=== PATIENT | male | born 1960 | race Caucasian/White ===

== ENCOUNTER → 2018-01-26 15:55 | Outpatient (CLI) | payer OTHER, SELFPAY ==
--- NOTE | 2018-01-26 15:58 | DI.RAD.S_ITS ---
PROCEDURE: XR ANKLE LT MIN 3V INDICATIONS: ankle pain lateral TECHNIQUE: 3 views of the ankle were acquired. COMPARISON: [facility], ANKLE 3 VIEWS LEFT, 02/13/2008, 14:16. [facility], ANKLE 3 VIEWS LEFT, 12/25/2007, 11:55. FINDINGS: Bones: No fractures or dislocations. Ankle mortise is normally aligned. No suspicious bony lesions. Soft tissues: No tibiotalar joint effusion. Achilles tendon appears normal. IMPRESSION: No trauma found, source of lateral ankle pain is not seen. Small plantar fascia and Achilles tendon insertion spurs are seen at the posterior calcaneus. Dictated by: Pedro Hernandez M.D. on 01/26/2018 at 16:36 Approved by: Pedro Hernandez M.D. on 01/26/2018 at 16:37
== END ==
PROVIDERS: Family Provider Family Medicine; PCP Family Medicine; Visit Provider Family Medicine
DX: M25.572 Pain in left ankle and joints of left foot (principal); M77.32 Calcaneal spur, left foot
CPT/HCPCS: 73610

== ENCOUNTER 2018-09-29 11:19 | Day surgery (SDC) | payer OTHER, SELFPAY ==
[2018-09-12 07:21] VITALS: BMI 35.4
[2018-09-29] VITALS (9 sets, daily range): BP systolic 103–116; BP diastolic 66–82; PULSE 63–72; RESP 10–16; TEMP 36.7–37.3; O2SAT 96–98; BMI 35.4
[2018-09-29] MEDS: LACTATED RINGERS 1,000 ML 42 ML IV ×2 (12:05→14:47)
--- NOTE | 2018-09-29 13:15 | PM.PREOP ---
Pre-operative Note Interval Note History & Physical reviewed/Exam performed by Physician: Yes Changes to H&P: No
--- NOTE | 2018-09-29 13:16 | PM.OP.1 ---
Operative Date/Time/Diagnoses Date of procedure: 09/29/18 Time of procedure: 13:16 Pre-op diagnosis: Right great toe arthritis, retained orthopedic hardware Post-op diagnosis: same Procedure & Clinicians Procedure: Right first metatarsophalangeal joint my-cap implant removal and conversion to arthrodesis Same procedure as scheduled: Yes Indications: Painful great toe joint with worsening arthritis Surgeon: Mis Birmingham Yes if Unassisted: Yes Anesthesia Type: General Operative Notes Closure Type: primary Specimen(s): none sent Prosthetic devices, grafts, tissues, transplants, or devices: [place] MTP plate 5 degrees, long Mini-Monster cannulated [place] screw 4.0 x1 Gorilla 3.5 locking x4 and non-locking x3 screws MTP bone disc 8x21mm Cancellous bone chips by [employer] 3-0, 4-0 Vicryl, 3-0 nylon Applied: graft(s) and implant(s) Estimated Blood Loss (mL): 40 Blood products transfused: none Tourniquet time (min): 119 Procedure in detail: The patient was brought to the operating room and placed on the operating table in the supine position. A tourniquet was placed about the patient's right thigh. After induction of general anesthesia the foot and ankle were prepped and draped in the usual aseptic manner. The tourniquet was inflated. Incision was made over the dorsal aspect of the right 1st metatarsophalangeal joint. The incision was deepened through subcutaneous tissues being careful to identify and retract all vital neurovascular structures. All bleeders were cauterized and ligated necessary. A significant amount of scar tissue was noted to the dorsal 1st metatarsophalangeal joint. The capsule was opened and I observed to the my cap in place on the 1st metatarsal head. It was clean and in place, there was a large amount of bone on the lateral plantar and little less on the dorsal and medial aspects. An osteotome and hammer were used to cleanly champfer off the distal cap. However this process took approximately 45 minutes as it was great difficulty in getting this off. We did find that taking down some of the bone was of help but regardless it just took time. However, it was removed cleanly and the stem was easily removed with the corresponding horse and wagon driver. A rongeur was used to reduce some of the leading edge of the bone of the 1st metatarsal as well as some of the exostoses and spurring of the proximal phalanx. A guidewire was placed in the 1st metatarsal shaft and a Reamer was used to prepare this segment. The guidewire was then removed. Next, the same was performed to the proximal phalanx base where a reamer was used to resect the cartilage from it to prepare the joint. The guidewire was then removed. The area was irrigated with copious amount of normal sterile saline. Sizer was tested and 1 was selected. Once the appropriate sizer was found, the cancellous bone chips were packed into the area of the first metatarsal where the stem had been removed. The graft was placed and seated well, reestablishing alignment. Temporary fixation across the joint was placed with a guidewire and this was checked under C-arm to be in appropriate alignment. Using the aid of fluoroscopy, the guide wire was used as cannulation for the drill for a lag screw from the distal medial to proximal lateral 1st metatarsal phalangeal joint through the graft. Confirmed appropriate in all 3 planes, a fully-threaded screw was placed and the guidewire removed. Good strength and reduction of the former joint as noted when loaded. Plate was placed and with the aid of fluoroscopy a series of locking screws and nonlocking screws were placed across the plate and steadied the joint well. This was checked on C-arm. The area is irrigated with copious amounts normal sterile saline. Some remaining bone chips were placed in small gap dorsally at prox phalanx, but pretty tight touch between graft and phalanx. The tourniquet was deflated and prompt hyperemic response was seen to the foot. And no motion was noted at the 1st MTPJ. Subcutaneous closure was performed using Vicryl and nylon was used to close the skin. A sterile lightly compressive dressing was placed on the foot and patient was placed in postoperative shoe. Patient was transferred to the PACU with vital signs stable and vascular status intact. Complications: none Condition: stable Disposition: PACU Plan for aftercare: Following a period of postoperative monitoring, the patient be discharged home on written and oral postoperative instructions including keeping the dressing dry and intact, avoiding ambulation on the foot, icing and elevating the foot when seated home. DVT prevention techniques have been reviewed. Nonweightbearing for 4-6 weeks, or until we feel comfortable from a standpoint after radiographs are reviewed at the 4th week.
[2018-09-29] MEDS: CEFAZOLIN 2 GM/100 ML FROZ.PIGGY IV (13:47)
--- NOTE | 2018-09-29 14:14 | SUR.OPER ---
Supine on padded OR bed, head on pillow, arms secured on padded arm boards at <90 degrees abduction, legs uncrossed, safety belt at waist, tape over blanket over left lower leg. Right leg under control of surgeon. Gel bump under right hip.
[2018-09-29] MEDS: BUPIVACAINE 0.5% (PF) VIAL 30 ML INJ (14:29)
[2018-09-29] MEDS: ACETAMINOPHEN 325 MG TABLET PO (17:18)
== END 2018-09-29 18:04 | disposition home or self-care (01) ==
PROVIDERS: Family Provider Family Medicine; PCP Family Medicine; Visit Provider Podiatrist
PROC: (CPT 26535; principal; 2018-09-29 12:30)
DX: M25.571 Pain in right ankle and joints of right foot (principal); M19.071 Primary osteoarthritis, right ankle and foot
CPT/HCPCS: 28750; 20680; J0360; J0690; J1100; J2405; J2704; J3010

== ENCOUNTER → 2019-03-30 15:13 | Outpatient (CLI) | payer OTHER, SELFPAY ==
--- NOTE | 2019-03-30 15:15 | DI.RAD.S_ITS ---
PROCEDURE: XR SHOULDER RT MIN 2V INDICATIONS: pain, dec rom, r/o AC sep/dislocation TECHNIQUE: 3 views of the shoulder were acquired. COMPARISON: None. FINDINGS: Bones: No fractures or dislocations. No suspicious bony lesions. Visualized ribs appear intact. Soft tissues: No suspicious soft tissue calcifications. IMPRESSION: No acute osseous abnormality. No AC joint separation demonstrated. Dictated by: Casper Hi M.D. on 03/30/2019 at 15:50 Approved by: Casper Hi M.D. on 03/30/2019 at 15:57
== END ==
PROVIDERS: Family Provider Family Medicine; PCP Family Medicine; Visit Provider Physician Assistant
DX: M25.511 Pain in right shoulder (principal)
CPT/HCPCS: 73030

== ENCOUNTER → 2019-04-05 07:14 | Outpatient (CLI) | payer OTHER, SELFPAY ==
--- NOTE | 2019-04-05 07:18 | DI.US.S_ITS ---
PROCEDURE: US ABDOMEN COMPLETE INDICATIONS: RIGHT UPPER QUADRANT PAIN TECHNIQUE: Real-time scanning was performed of the abdominal and retroperitoneal organs, with image documentation. COMPARISON: None. FINDINGS: Liver: Liver is normal in size and homogeneous in echotexture. Gallbladder: Removed. Biliary ducts: Portions of the biliary ducts are not seen, yet the common hepatic duct measures 5 mm. Pancreas: Not seen, obscured by overlying bowel gas. Spleen: Spleen measures 14 cm, which is considered to be mildly enlarged. Kidneys: Kidneys are normal in size and echotexture. Right kidney measures 10.9 cm long; left kidney measures 11.2 cm long. No hydronephrosis or nephrolithiasis. No solid masses. The renal cortex measures within normal limits for thickness. Aorta: Visualized aorta is normal in caliber at less than 3 cm. Iliacs: Proximal common iliac arteries are normal in caliber at less than 2.5 cm. IVC: Intrahepatic inferior vena cava is patent. Miscellaneous: No free abdominal fluid. IMPRESSION: No imaging explanation is found for this patient's presenting history of right upper quadrant pain. Cholecystectomy, without biliary dilatation. Mild splenomegaly. Dictated by: Arthur Solis M.D. on 04/05/2019 at 9:56 Approved by: Arthur Solis M.D. on 04/05/2019 at 9:58
[2019-04-05 08:12] LABS: Add Manual Diff / Slide Review NO; Basophils Absolute Auto 0 /uL (0-100); Basophils Percent Auto 0.6 % (0-2); Eosinophils Absolute Auto 100 /uL (0-450); Eosinophils Percent Auto 2.2 % (2-4); Hematocrit 42.1 % (41-53); Hemoglobin 14.6 g/dL (13.5-17.5); Lymphocytes Absolute Auto 1400 /uL (1100-4500); Mean Corpuscular HGB Conc 34.8 % (30-36); Mean Corpuscular Hemoglobin 29.4 PG (26-34); Mean Corpuscular Volume 84.6 fL (80-100); Monocytes Absolute Auto 400 /uL (0-900); Monocytes Percent Auto 9.2 % (3-14); Neutrophils Absolute Auto 2100 /uL (1500-7000); Platelet Count 144 X10^3/uL (150-400); Red Blood Cell Count 4.98 X10^6/uL (4.5-5.9); Red Cell Distribution Width 13.5 % (11.6-14.8); White Blood Cell Count 3.9 X10^3/uL (4.5-11.0)
[2019-04-05 08:49] LABS: Alanine Aminotransferase 24 IU/L (<50); Albumin 4.1 g/dL (3.5-5.0); Albumin Globulin Ratio 1.5 (1.0-2.8); Alkaline Phosphatase 70 U/L (38-126); Aspartate Aminotransferase 26 IU/L (17-59); BUN Creatinine Ratio 14.4 (6-22); Bilirubin Total 0.5 mg/dL (0.2-1.3); Blood Urea Nitrogen 13 mg/dL (9-20); Calcium 9.3 mg/dL (8.4-10.2); Carbon Dioxide 30 mmol/L (22-32); Chloride 104 mmol/L (98-107); Cholesterol 167 mg/dL (140-199); Estimated Glomerular Filt Rate > 60.0 mL/min (>60); Globulin 2.7 g/dL (1.7-4.1); Glucose 103 mg/dL (70-100); HDL Cholesterol 32 mg/dL (40-60); HEMOLYSIS < 15 (0-50); LDL Cholesterol Calculated 103 mg/dL (<100); Potassium 4.1 mmol/L (3.4-5.1); Sodium 141 mmol/L (137-145); Total Protein 6.8 g/dL (6.3-8.2); Triglycerides 162 mg/dL (35-150)
[2019-04-05 09:14] LABS: TSH w/ Reflex to FT4 1.82 uIU/mL (0.47-4.68)
== END ==
PROVIDERS: PCP Family Medicine; Visit Provider Family Medicine
DX: R10.11 Right upper quadrant pain (principal); R16.1 Splenomegaly, not elsewhere classified; Z90.49 Acquired absence of other specified parts of digestive tract
CPT/HCPCS: 36415; 76700; 80053; 80061; 84443; 85025

== ENCOUNTER 2020-01-16 13:54 | Emergency (ER) | payer OTHER, SELFPAY ==
[2020-01-16 14:00] VITALS: BP 153/73; PULSE 73; RESP 17; TEMP 36.8; O2SAT 98; BMI 33.6
--- NOTE | 2020-01-16 14:21 | DI.RAD.S_ITS ---
PROCEDURE: XR CHEST 1V INDICATIONS: chest pain TECHNIQUE: One view of the chest was acquired. COMPARISON: None. FINDINGS: Surgical changes and devices: None. Lungs and pleura: Lungs are clear. No pleural effusions or pneumothorax. Mediastinum: Mediastinal contours appear normal. Heart size is normal. Bones and chest wall: No suspicious bony lesions. Overlying soft tissues appear unremarkable. IMPRESSION: No acute cardiopulmonary abnormalities or focal airspace disease. Dictated by: Cheko Lee M.D. on 01/16/2020 at 13:49 Approved by: Cheko Lee M.D. on 01/16/2020 at 13:50
[2020-01-16 14:37] LABS: Add Manual Diff / Slide Review NO; Basophils Absolute Auto 0 /uL (0-100); Basophils Percent Auto 0.7 % (0-2); Eosinophils Absolute Auto 100 /uL (0-450); Hematocrit 41.8 % (41-53); Lymphocytes Absolute Auto 1400 /uL (1100-4500); Lymphocytes Percent Auto 28.8 % (25-40); Mean Corpuscular HGB Conc 33.5 % (30-36); Mean Corpuscular Volume 86.6 fL (80-100); Monocytes Absolute Auto 300 /uL (0-900); Monocytes Percent Auto 6.9 % (3-14); Neutrophils Absolute Auto 3100 /uL (1500-7000); Neutrophils Percent Auto 61.6 % (50-75); Platelet Count 150 X10^3/uL (150-400); Red Blood Cell Count 4.82 X10^6/uL (4.5-5.9); Red Cell Distribution Width 13.7 % (11.6-14.8)
[2020-01-16 14:47] LABS: INR 1.1 (0.9-1.3); Prothrombin Time 12.3 SECONDS (10.1-12.7)
[2020-01-16 14:49] LABS: PTT Partial Thromboplastin Tim 34 SECONDS (26.4-36.2)
[2020-01-16 14:52] LABS: Alanine Aminotransferase 24 IU/L (<50); Albumin 4.2 g/dL (3.5-5.0); Albumin Globulin Ratio 1.4 (1.0-2.8); Alkaline Phosphatase 68 U/L (38-126); Aspartate Aminotransferase 28 IU/L (17-59); BUN Creatinine Ratio 13.1 (6-22); Bilirubin Total 0.5 mg/dL (0.2-1.3); Blood Urea Nitrogen 11 mg/dL (9-20); Calcium 8.9 mg/dL (8.4-10.2); Carbon Dioxide 29 mmol/L (22-32); Chloride 103 mmol/L (98-107); Creatine Kinase 170 U/L (55-170); Estimated Glomerular Filt Rate > 60.0 mL/min (>60); Globulin 2.9 g/dL (1.7-4.1); Glucose 138 mg/dL (80-110); HEMOLYSIS < 15 (0-50); Lipase 58 U/L (23-300); Potassium 3.9 mmol/L (3.4-5.1); Sodium 138 mmol/L (137-145); Total Protein 7.1 g/dL (6.3-8.2)
[2020-01-16 15:07] LABS: CKMB % Relative Index 2.3 % (1.5-5.0); Creatine Kinase MB 3.88 ng/mL (<2.37); Troponin I < 0.012 ng/mL (0.01-0.034)
[2020-01-16 15:45] LABS: D Dimer < 200 ng/mL (<230)
[2020-01-16 15:55] LABS: NT-proBNP (BNP-Adult 18+) 26 pg/mL (<125)
--- NOTE | 2020-01-16 16:31 | PC.NURSE ---
Reports cough/chest pain after using cleaning products at work.
[2020-01-16 16:47] LABS: Creatine Kinase 157 U/L (55-170)
[2020-01-16 17:00] LABS: Troponin I < 0.012 ng/mL (0.01-0.034)
[2020-01-16 17:03] LABS: CKMB % Relative Index 2.4 % (1.5-5.0); Creatine Kinase MB 3.82 ng/mL (<2.37)
[2020-01-16 17:09] VITALS: PULSE 60; RESP 19; O2SAT 97
[2020-01-16 17:10] VITALS: BP 131/88; PULSE 60; RESP 22; O2SAT 97; O2SAT 98
[2020-01-16 17:30] VITALS: BP 137/88; PULSE 57; RESP 14; O2SAT 97
[2020-01-16 18:00] VITALS: BP 136/79; PULSE 58; RESP 19; O2SAT 98
--- NOTE | 2020-01-16 19:30 | ED_ITS ---
HPI - Chest Pain <MAGDA Guerrero-BC - Last Filed: 01/16/20 19:36> General Chief Complaint: Chest Pain Stated Complaint: chest pain Time Seen by Provider: 01/16/20 14:59 Source: patient Mode of arrival: Ambulatory Limitations: no limitations History of Present Illness HPI narrative: Of hypertension who presents with a chief complaint of right- sided chest pain. He states that this has been an ongoing issue since the coronavirus pandemic started. The patient states that he has seen his primary care provider for this prior. He states that he has right-sided chest pain, difficulty breathing headache and nausea after being exposed to cleaning agent where he works at the [employer]. He states that this happens every time that he comes into the chemical spray. This has happened consistently since the coronavirus pandemic. He states that he was exposed earlier today and felt sudden severe pain so we wanted to come to the emergency department get checked out make sure that there was not anything more serious going on. He states that his pain is improved since his exposure, but it is still there. He denies any current nausea vomiting shortness of breath swelling of his extremities. He has not taken anything for the pain. He states that they have tried to get him to be fit tested by online survey for an n95 to help reduce his exposure. Related Data Previous Rx's Medication Instructions Recorded lisinopril 20 1 tab PO DAILY #30 tab 11/05/19 mg-hydrochlorothiazide 12.5 mg tablet Allergies Allergy/AdvReac Type Severity Reaction Status Date / Time gabapentin [GABAPENTIN] Allergy Severe suicidal Verified 01/16/20 14:30 ibuprofen Allergy Mild HEADACHE Verified 01/16/20 14:30 nortriptyline Allergy Mild [place] not Verified 01/16/20 14:30 there, angry Review of Systems <YOUSIF GuerreroBC - Last Filed: 01/16/20 19:36> Review of Systems Narrative: GENERAL: Denies chills, fatigue, malaise, fever, sweats. HEENT: Denies sinus pain, ear pain, sore throat, difficulty swallowing, dizziness. RESPIRATORY: See HPI CARDIOVASCULAR: See HPI GASTROINTESTINAL: Denies nausea, vomiting, abdominal pain, diarrhea, constipation, melena. : Denies dysuria, frequency, incontinence, hematuria, urinary retention. MUSCULOSKELETAL: denies weakness, joint pain, or bony pain SKIN: Denies rash, skin lesions, or other NEUROLOGIC: Denies weakness, headache, numbness, change in speech, confusion, seizures, incoordination. PSYCHIATRIC: No concerning psychosocial issues. 12 point review of systems is negative except for those stated above Patient History <KYLEE Guerrero - Last Filed: 01/16/20 19:36> Medical History Arthritis of left hip (Chronic) DDD (degenerative disc disease), cervical (Chronic) DDD (degenerative disc disease), lumbar (Chronic) Midline low back pain (Chronic) Obstructive sleep apnea (Chronic) Psoriasis (Chronic) Right shoulder injury (Acute) Sciatica (Chronic) Snoring (Chronic) Vertigo (Acute) Surgical History History of arthroscopy of left knee (Resolved) History of arthroscopy of left knee (Resolved) History of arthroscopy of right knee (Resolved) History of bunionectomy of right great toe (Resolved 07/06/13) History of carpal tunnel repair (Resolved 07/28/12) History of cervical discectomy (Resolved 09/2014) History of colonoscopy with polypectomy (Resolved 04/09/13) History of elbow surgery (Resolved 09/16/16) Status post arthroscopy Status post cholecystectomy (Resolved) Status post epidural steroid injection (Resolved 02/22/14) Status post hemorrhoidectomy (Resolved) Social History marital status: household members: spouse Smoking Status: Never smoker alcohol intake: current substance use type: does not use Smoking Status: Never smoker alcohol intake frequency: other Substance Use Type: does not use Exam <KYLEE Guerrero - Last Filed: 01/16/20 19:36> Narrative Exam Narrative: GENERAL: This is a well-nourished, well-developed patient, in no acute distress HEAD: Atraumatic. Normocephalic. No temporal or scalp tenderness. EYES: Pupils equal round and reactive. Extraocular motions intact. No scleral icterus. No injection or drainage. ENT: Nose without bleeding, purulent drainage or septal hematoma. Throat without erythema, tonsillar hypertrophy or exudate. Uvula midline. Airway patent. NECK: Trachea midline. No JVD or lymphadenopathy. Supple, nontender, no meningeal signs. CARDIOVASCULAR: Regular rate and rhythm without murmurs, gallops, or rubs. RESPIRATORY: Clear to auscultation. Breath sounds equal bilaterally. No wheezes, rales, or rhonchi. No cough. No increased respiratory effort. No accessory muscle use. Speaking full sentences. GASTROINTESTINAL: Abdomen soft, non-tender, nondistended. No hepato- splenomegaly, or palpable masses. No guarding. Active bowel sounds all 4 quadrants. EXTREMITIES: No clubbing, cyanosis, or edema. No joint tenderness, effusion, or edema noted. BACK: Nontender without deformity or crepitance. No flank tenderness. NEURO: AOx3. SKIN: No rash or erythema on visible skin Initial Vital Signs Initial Vital Signs: Vital Signs Temperature 98.3 F 01/16/20 14:00 Pulse Rate 73 01/16/20 14:00 Respiratory Rate 17 01/16/20 14:00 Blood Pressure 153/73 H 01/16/20 14:00 Pulse Oximetry 98 01/16/20 14:00 <Catracho Alatorre MD - Last Filed: 01/17/20 08:17> Initial Vital Signs Initial Vital Signs: Vital Signs Temperature 98.3 F 01/16/20 14:00 Pulse Rate 73 01/16/20 14:00 Respiratory Rate 17 01/16/20 14:00 Blood Pressure 153/73 H 01/16/20 14:00 Pulse Oximetry 98 01/16/20 14:00 Scores <KYLEE Guerrero - Last Filed: 01/16/20 19:36> GCS Frank coma scale eye opening: Spontaneous Frank coma scale verbal response: Orientated [place] coma scale motor response: Obey commands Frank coma scale total score: 15 Course <KYLEE Guerrero - Last Filed: 01/16/20 19:36> Orders Ordered: ED Orders 01/16/20 14:21 XR chest 1V Stat EKG-12 Lead Stat 01/16/20 14:27 Complete Blood Count AUTO DIFF Stat Comprehensive Metabolic Panel Stat Lipase Stat Partial Thromboplastin Time Stat Prothrombin Time INR Stat Troponin & CK Cardiac Panel Stat 01/16/20 16:30 Troponin & CK Cardiac Panel Stat 01/16/20 17:27 D Dimer Stat NT-proBNP (BNP-Adult 18+) Stat Vital Signs Vital signs: Vital Signs - 8 hr 01/16/20 14:00 01/16/20 17:09 01/16/20 17:10 Temperature 98.3 F Pulse Rate 73 60 60 Respiratory Rate 17 19 22 Blood Pressure 153/73 H 131/88 Pulse Oximetry 98 97 98 01/16/20 17:30 01/16/20 18:00 Temperature Pulse Rate 57 L 58 L Respiratory Rate 14 19 Blood Pressure 137/88 136/79 Pulse Oximetry 97 98 <Catracho Alatorre MD - Last Filed: 01/17/20 08:17> Orders Ordered: ED Orders 01/16/20 14:21 XR chest 1V Stat EKG-12 Lead Stat 01/16/20 14:27 Complete Blood Count AUTO DIFF Stat Comprehensive Metabolic Panel Stat Lipase Stat Partial Thromboplastin Time Stat Prothrombin Time INR Stat Troponin & CK Cardiac Panel Stat 01/16/20 16:30 Troponin & CK Cardiac Panel Stat 01/16/20 17:27 D Dimer Stat NT-proBNP (BNP-Adult 18+) Stat Vital Signs Vital signs: Vital Signs - 8 hr 01/16/20 14:00 01/16/20 17:09 01/16/20 17:10 Temperature 98.3 F Pulse Rate 73 60 60 Respiratory Rate 17 19 22 Blood Pressure 153/73 H 131/88 Pulse Oximetry 98 97 98 01/16/20 17:30 01/16/20 18:00 Temperature Pulse Rate 57 L 58 L Respiratory Rate 14 19 Blood Pressure 137/88 136/79 Pulse Oximetry 97 98 MDM - Chest Pain <KYLEE Guerrero - Last Filed: 01/16/20 19:36> Lab Data Attestation: I reviewed the patient's lab results. Result diagrams: 01/16/20 14:27 01/16/20 14:27 Labs: Lab Results 01/16/20 01/16/20 01/16/20 Range/Units 14:27 14:27 14:27 WBC 5.0 (4.5-11.0) X10^3/uL RBC 4.82 (4.5-5.9) X10^6/uL Hgb 14.0 (13.5-17.5) g/dL Hct 41.8 (41-53) % MCV 86.6 (80-100) fL MCH 29.0 (26-34) PG MCHC 33.5 (30-36) % RDW 13.7 (11.6-14.8) % Plt Count 150 (150-400) X10^3/uL Neut % (Auto) 61.6 (50-75) % Lymph % (Auto) 28.8 (25-40) % [place] % (Auto) 6.9 (3-14) % Eos % (Auto) 2.0 (2-4) % Baso % (Auto) 0.7 (0-2) % Neut # (Auto) 3100 (9407-8003) /uL Lymph # (Auto) 1400 (8529-2754) /uL [place] # (Auto) 300 (0-900) /uL Eos # (Auto) 100 (0-450) /uL Baso # (Auto) 0 (0-100) /uL PT 12.3 (10.1-12.7) SECONDS INR 1.1 (0.9-1.3) APTT 34 (26.4-36.2) SECONDS D-Dimer (<230) ng/mL Sodium 138 (137-145) mmol/L Potassium 3.9 (3.4-5.1) mmol/L Chloride 103 (98-107) mmol/L Carbon Dioxide 29 (22-32) mmol/L BUN 11 (9-20) mg/dL Creatinine 0.84 (0.66-1.25) mg/dL Estimated GFR > 60.0 (>60) mL/min BUN/Creatinine Ratio 13.1 (6-22) Glucose 138 H (80-110) mg/dL Calcium 8.9 (8.4-10.2) mg/dL Total Bilirubin 0.5 (0.2-1.3) mg/dL AST 28 (17-59) IU/L ALT 24 (<50) IU/L Alkaline Phosphatase 68 (38-126) U/L Total Creatine Kinase 170 (55-170) U/L CK-MB (CK-2) 3.88 H (<2.37) ng/mL CK-MB (CK-2) Rel Index 2.3 (1.5-5.0) % Troponin I < 0.012 (0.01-0.034) ng/mL NT-Pro-B Natriuret Pep (<125) pg/mL Total Protein 7.1 (6.3-8.2) g/dL Albumin 4.2 (3.5-5.0) g/dL Globulin 2.9 (1.7-4.1) g/dL Albumin/Globulin Ratio 1.4 (1.0-2.8) Lipase 58 (23-300) U/L 01/16/20 01/16/20 01/16/20 Range/Units 16:30 17:27 17:27 WBC (4.5-11.0) X10^3/uL RBC (4.5-5.9) X10^6/uL Hgb (13.5-17.5) g/dL Hct (41-53) % MCV (80-100) fL MCH (26-34) PG MCHC (30-36) % RDW (11.6-14.8) % Plt Count (150-400) X10^3/uL Neut % (Auto) (50-75) % Lymph % (Auto) (25-40) % [place] % (Auto) (3-14) % Eos % (Auto) (2-4) % Baso % (Auto) (0-2) % Neut # (Auto) (8261-4441) /uL Lymph # (Auto) (5572-5352) /uL [place] # (Auto) (0-900) /uL Eos # (Auto) (0-450) /uL Baso # (Auto) (0-100) /uL PT (10.1-12.7) SECONDS INR (0.9-1.3) APTT (26.4-36.2) SECONDS D-Dimer < 200 (<230) ng/mL Sodium (137-145) mmol/L Potassium (3.4-5.1) mmol/L Chloride (98-107) mmol/L Carbon Dioxide (22-32) mmol/L BUN (9-20) mg/dL Creatinine (0.66-1.25) mg/dL Estimated GFR (>60) mL/min BUN/Creatinine Ratio (6-22) Glucose (80-110) mg/dL Calcium (8.4-10.2) mg/dL Total Bilirubin (0.2-1.3) mg/dL AST (17-59) IU/L ALT (<50) IU/L Alkaline Phosphatase (38-126) U/L Total Creatine Kinase 157 (55-170) U/L CK-MB (CK-2) 3.82 H (<2.37) ng/mL CK-MB (CK-2) Rel Index 2.4 (1.5-5.0) % Troponin I < 0.012 (0.01-0.034) ng/mL NT-Pro-B Natriuret Pep 26 (<125) pg/mL Total Protein (6.3-8.2) g/dL Albumin (3.5-5.0) g/dL Globulin (1.7-4.1) g/dL Albumin/Globulin Ratio (1.0-2.8) Lipase (23-300) U/L Imaging Data Chest x-ray: Radiologist's Impression: [address] [place] [id number] XRay Report Signed Patient: Tommy Perez R#: [id number] : 1960Acct:[id number] Age/Sex: 60 / MDate of Service: 01/16/20 Loc: ED Accession Number: [id number] Procedure: XR chest 1V Ordering Provider: Catracho Alatorre MD PROCEDURE: XR CHEST 1V INDICATIONS: chest pain TECHNIQUE: One view of the chest was acquired. COMPARISON: None. FINDINGS: Surgical changes and devices: None. Lungs and pleura: Lungs are clear. No pleural effusions or pneumothorax. Mediastinum: Mediastinal contours appear normal. Heart size is normal. Bones and chest wall: No suspicious bony lesions. Overlying soft tissues appear unremarkable. IMPRESSION: No acute cardiopulmonary abnormalities or focal airspace disease. Dictated by: Cheko Lee M.D. on 01/16/2020 at 13:49 Approved by: Cheko Lee M.D. on 01/16/2020 at 13:50 ECG Data Attestation: I personally reviewed and interpreted this ECG as follows: Interpretation: Sinus rhythm. Ventricular rate 82. P.r. interval 164. QRS 152. Right bundle-branch block noted. Viewed by Dr. Landry GIBBS Narrative Medical decision making narrative: The patient is a 60-year-old male who presents with a chief complaint of right-sided chest pain after chemical exposure at work. He appears well, hemodynamically stable oxygenating well and feels improved throughout his stay in the emergency department. Given his history of hypertension and age, consideration was given for underlying cardiac disease. He has initial negative troponin, repeat negative troponin, and appears to have right-sided chest pain related to his chemical exposure. I spoke with Luis Miguel, respiratory therapist to states that respiratory therapy will do this testing for [facility] patient's they have their own masks as a courtesy. Per his request, gave patient contact information for respiratory therapy so that he can follow-up with them and be fit tested accordingly. I discussed at length the importance of following up with primary care provider as well as staying safe and coming back to the emergency department for any acute concerns. Patient has no questions or concerns upon discharge and states understanding return precautions as well as follow-up care. <Catracho Alatorre MD - Last Filed: 01/17/20 08:17> Lab Data Labs: Lab Results 01/16/20 01/16/20 01/16/20 Range/Units 14:27 14:27 14:27 WBC 5.0 (4.5-11.0) X10^3/uL RBC 4.82 (4.5-5.9) X10^6/uL Hgb 14.0 (13.5-17.5) g/dL Hct 41.8 (41-53) % MCV 86.6 (80-100) fL MCH 29.0 (26-34) PG MCHC 33.5 (30-36) % RDW 13.7 (11.6-14.8) % Plt Count 150 (150-400) X10^3/uL Neut % (Auto) 61.6 (50-75) % Lymph % (Auto) 28.8 (25-40) % [place] % (Auto) 6.9 (3-14) % Eos % (Auto) 2.0 (2-4) % Baso % (Auto) 0.7 (0-2) % Neut # (Auto) 3100 (8798-4957) /uL Lymph # (Auto) 1400 (6640-4327) /uL [place] # (Auto) 300 (0-900) /uL Eos # (Auto) 100 (0-450) /uL Baso # (Auto) 0 (0-100) /uL PT 12.3 (10.1-12.7) SECONDS INR 1.1 (0.9-1.3) APTT 34 (26.4-36.2) SECONDS D-Dimer (<230) ng/mL Sodium 138 (137-145) mmol/L Potassium 3.9 (3.4-5.1) mmol/L Chloride 103 (98-107) mmol/L Carbon Dioxide 29 (22-32) mmol/L BUN 11 (9-20) mg/dL Creatinine 0.84 (0.66-1.25) mg/dL Estimated GFR > 60.0 (>60) mL/min BUN/Creatinine Ratio 13.1 (6-22) Glucose 138 H (80-110) mg/dL Calcium 8.9 (8.4-10.2) mg/dL Total Bilirubin 0.5 (0.2-1.3) mg/dL AST 28 (17-59) IU/L ALT 24 (<50) IU/L Alkaline Phosphatase 68 (38-126) U/L Total Creatine Kinase 170 (55-170) U/L CK-MB (CK-2) 3.88 H (<2.37) ng/mL CK-MB (CK-2) Rel Index 2.3 (1.5-5.0) % Troponin I < 0.012 (0.01-0.034) ng/mL NT-Pro-B Natriuret Pep (<125) pg/mL Total Protein 7.1 (6.3-8.2) g/dL Albumin 4.2 (3.5-5.0) g/dL Globulin 2.9 (1.7-4.1) g/dL Albumin/Globulin Ratio 1.4 (1.0-2.8) Lipase 58 (23-300) U/L 01/16/20 01/16/20 01/16/20 Range/Units 16:30 17:27 17:27 WBC (4.5-11.0) X10^3/uL RBC (4.5-5.9) X10^6/uL Hgb (13.5-17.5) g/dL Hct (41-53) % MCV (80-100) fL MCH (26-34) PG MCHC (30-36) % RDW (11.6-14.8) % Plt Count (150-400) X10^3/uL Neut % (Auto) (50-75) % Lymph % (Auto) (25-40) % [place] % (Auto) (3-14) % Eos % (Auto) (2-4) % Baso % (Auto) (0-2) % Neut # (Auto) (7105-0715) /uL Lymph # (Auto) (6510-5188) /uL [place] # (Auto) (0-900) /uL Eos # (Auto) (0-450) /uL Baso # (Auto) (0-100) /uL PT (10.1-12.7) SECONDS INR (0.9-1.3) APTT (26.4-36.2) SECONDS D-Dimer < 200 (<230) ng/mL Sodium (137-145) mmol/L Potassium (3.4-5.1) mmol/L Chloride (98-107) mmol/L Carbon Dioxide (22-32) mmol/L BUN (9-20) mg/dL Creatinine (0.66-1.25) mg/dL Estimated GFR (>60) mL/min BUN/Creatinine Ratio (6-22) Glucose (80-110) mg/dL Calcium (8.4-10.2) mg/dL Total Bilirubin (0.2-1.3) mg/dL AST (17-59) IU/L ALT (<50) IU/L Alkaline Phosphatase (38-126) U/L Total Creatine Kinase 157 (55-170) U/L CK-MB (CK-2) 3.82 H (<2.37) ng/mL CK-MB (CK-2) Rel Index 2.4 (1.5-5.0) % Troponin I < 0.012 (0.01-0.034) ng/mL NT-Pro-B Natriuret Pep 26 (<125) pg/mL Total Protein (6.3-8.2) g/dL Albumin (3.5-5.0) g/dL Globulin (1.7-4.1) g/dL Albumin/Globulin Ratio (1.0-2.8) Lipase (23-300) U/L Discharge Plan Departure Patient Disposition: Home Clinical Impression: Atypical chest pain Discharge Date/Time: 01/16/20 18:24 Instructions: DI for Atypical Chest Pain, DI for Chest Pain Activity Restrictions/Additional Instructions: Thank you for trusting us with your care today. As discussed, please follow-up with primary care provider. Your lab work and x-rays came back well with no acute abnormalities. Given the correlation with cleaning chemicals at work I suspect your pain is likely due to the chemicals that your being exposed to at work. You can contact respiratory therapy at [phone] to see if they can do fit testing for you. I spoke with respiratory therapist Luis Miguel. Please let them know that you work for [employer]. As discussed, please come back to the emergency department for any acute concerns such as concern of heart attack or stroke Prescriptions: No Action lisinopril-hydrochlorothiazide 20-12.5 mg tablet 1 tab PO DAILY Qty: 30 RF: 11 Referrals: Zachary Chandler MD [Primary Care Provider] - Stand Alone Forms: Work Release Note <Catracho Alatorre MD - Last Filed: 01/17/20 08:17> Cosign ED Attending Cosignature Attestation: I was immediately available in the department for consultation. This documentation has been reviewed and I agree with assessment and plan. Supervised by Catracho Alatorre MD
== END 2020-01-16 18:24 | disposition home or self-care (01) ==
PROVIDERS: Emergency Medicine; Emergency Provider Nurse Practitioner Family; PCP Family Medicine
DX: R07.89 Other chest pain (principal); R06.00 Dyspnea, unspecified; R51.9 Headache, unspecified; R11.0 Nausea
CPT/HCPCS: 36415; 71045; 80053; 82550; 82553; 83690; 83880; 84484; 85025; 85379; 85610; 85730; 93005; 99284

== ENCOUNTER → 2020-01-30 15:07 | Outpatient (CLI) | payer OTHER, SELFPAY ==
[2020-01-30 16:39] LABS: COVID19 -Nasal RAPID Negative (Negative)
== END ==
PROVIDERS: PCP Family Medicine; Referring Provider Internal Medicine; Visit Provider Internal Medicine
DX: Z11.59 Encounter for screening for other viral diseases (principal)
CPT/HCPCS: 87635; C9803

== ENCOUNTER → 2020-01-31 08:44 | Outpatient (CLI) | payer OTHER, SELFPAY ==
--- NOTE | 2020-02-10 10:45 | PM.PFT.1 ---
Pulmonary Function Test Referral & Results Date Patient Seen: 01/31/20 Requesting provider: Zachary Chandler Results: The spirometry demonstrates an FVC of 3.85 L which is 75% of predicted. The FEV1 was measured at 3.12 L which is 80% of predicted. The FEV1/FVC ratio was 81 which is 107% of predicted. Following the administration of bronchodilator there was a 49% improvement in FEF 25-75%. Lung volumes show an SVC of 4.98 L which is 98% of predicted. The diffusing capacity was measured at 33.56 which is 95% of predicted. The maximum voluntary ventilation was normal Interpretation: This study demonstrates normal pulmonary function. There is a minimal reduction in FEV1 but a normal FEV1/FVC ratio argues against any significant obstructive lung disease.
== END ==
PROVIDERS: PCP Family Medicine; Referring Provider Family Medicine; Visit Provider Family Medicine
DX: Z77.098 Contact with and (suspected) exposure to other hazardous, chiefly nonmedicinal, chemicals (principal); R06.00 Dyspnea, unspecified
CPT/HCPCS: 94060; 94726; 94729

== ENCOUNTER → 2020-06-04 15:38 | Outpatient (CLI) | payer OTHER, SELFPAY ==
--- NOTE | 2020-06-04 15:39 | DI.RAD.S_ITS ---
PROCEDURE: XR FOOT RT MIN 3V INDICATIONS: RIGHT TOE PAIN TECHNIQUE: 3 views of the foot were acquired. COMPARISON: [facility], , XR FOOT 3+ VIEWS RIGHT, 02/13/2019, 14:57. [facility], CR, XR FOOT 3+ VIEWS RIGHT, 04/17/2019, 9:24. [facility], , FOOT 3V LEFT, 12/25/2007, 11:55. FINDINGS: Bones: No acute fracture. Plate and screw fixation of the 1st MTP joint. The hardware appears intact. There is expected postoperative alignment. Mild if any bridging ossification is present. Plantar and posterior calcaneal spur. Mild diffuse midfoot joint degeneration. Minimal lucency at the bone metal interface in the proximal phalanx of the great toes unchanged since dating back to 02/13/19 Soft tissues: No tibiotalar joint effusion. Achilles tendon appears normal. IMPRESSION: Postsurgical changes in expected alignment. Plantar and posterior calcaneal spurs. Dictated by: Morales Dash M.D. on 06/04/2020 at 17:43 Approved by: Morales Dash M.D. on 06/04/2020 at 17:48
== END ==
PROVIDERS: PCP Family Medicine; Referring Provider Family Medicine; Visit Provider Family Medicine
DX: M79.674 Pain in right toe(s) (principal); M77.31 Calcaneal spur, right foot
CPT/HCPCS: 73630

== ENCOUNTER → 2020-08-26 09:56 | Outpatient (CLI) | payer OTHER, SELFPAY ==
--- NOTE | 2020-08-26 09:59 | DI.RAD.S_ITS ---
PROCEDURE: XR KNEE RT 3V INDICATIONS: rt knee pain TECHNIQUE: 3 views of the knee were acquired. COMPARISON: [facility], , KNEE 3V LEFT, 01/24/2012, 13:56. [facility], , KNEE 3V RIGHT, 01/24/2012, 13:52. FINDINGS: Bones: No fractures or dislocations. No suspicious bony lesions. Soft tissues: No joint effusion. No suspicious soft tissue calcifications. IMPRESSION: Moderate medial compartment joint space narrowing, previously the case in January of 2012 also. This has only slightly worsened. No acute trauma found. Dictated by: Pedro Hernandez M.D. on 08/26/2020 at 12:03 Approved by: Pedro Hernandez M.D. on 08/26/2020 at 12:06
== END ==
PROVIDERS: PCP Family Medicine; Referring Provider Family Medicine; Visit Provider Family Medicine
DX: M25.561 Pain in right knee (principal); G89.29 Other chronic pain
CPT/HCPCS: 73562

== ENCOUNTER 2022-01-26 15:14 | Emergency (ER) | payer OTHER, SELFPAY ==
[2022-01-26 16:10] VITALS: BP 170/100; PULSE 70; RESP 15; TEMP 36.4; O2SAT 98; BMI 34.2
[2022-01-26 16:15] VITALS: BP 147/95; PULSE 70; TEMP 36.9; O2SAT 98
--- NOTE | 2022-01-26 16:18 | DI.US.S_ITS ---
PROCEDURE: US PERIPH VENOUS LOW EXTREM LT INDICATIONS: CALF EDEMA TECHNIQUE: Real-time imaging, as well as color and pulse Doppler interrogation, were performed of the lower extremity deep veins from the inguinal ligament to the popliteal fossa. COMPARISON: None. FINDINGS: Occlusive thrombus identified in the left popliteal vein. The common femoral and femoral veins are normally compressible, and free of intraluminal thrombus. Color and pulse Doppler demonstrate loss of normal phasic intraluminal flow in the left popliteal vein. There is loss of normal augmentation response to distal compression maneuver in the left popliteal vein. IMPRESSION: Abnormal study demonstrating occlusive thrombus in the left popliteal vein. Dictated by: Shira Valencia MD, PhD on 01/26/2022 at 16:57 Approved by: Shira Valencia MD, PhD on 01/26/2022 at 16:59
--- NOTE | 2022-01-26 21:34 | ED_ITS ---
HPI - Extremity Problem General Chief complaint: Extremity Problem,Nontraumatic Stated complaint: left calf swollen much larger than right Time Seen by Provider: 01/26/22 21:34 Source: patient Mode of arrival: Ambulatory History of Present Illness HPI Narrative: Mr. Farmer is a 62-year-old man who comes to the ER today with left calf pain. Noticed pain in that calf and swelling there for many months after a traumatic injury about a year ago. However the left calf has been much more painful just recently. Not had any symptoms above the knee nor has he had any chest symptoms such as chest pain, cough, shortness of breath or fever. Has hypertension and some other conditions that are not relevant. He is never had a DVT previously. Related Data Previous Rx's Medication Instructions Recorded losartan 50 mg-hydrochlorothiazide 1 tab PO DAILY #90 tabs 08/26/20 12.5 mg tablet apixaban 5 mg (74 tabs) tablets in 5 mg PO BID #74 ea 01/26/22 a dose pack Allergies Allergy/AdvReac Type Severity Reaction Status Date / Time gabapentin [GABAPENTIN] Allergy Severe suicidal Verified 01/26/22 16:10 ibuprofen Allergy Mild HEADACHE Verified 01/26/22 16:10 nortriptyline Allergy Mild [place] not Verified 01/26/22 16:10 there, angry Review of Systems Review of Systems Narrative: Review of systems is negative other than as noted above. 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) Midline low back pain Obstructive sleep apnea Psoriasis Right shoulder injury Sciatica Snoring Toe pain, right Vertigo Surgical History History of arthroscopy of left knee History of arthroscopy of left knee History of arthroscopy of right knee History of bunionectomy of right great toe (07/06/13) History of carpal tunnel repair (07/28/12) History of cervical discectomy (09/2014) History of colonoscopy with polypectomy (04/09/13) History of elbow surgery (09/16/16) Status post arthroscopy Status post cholecystectomy Status post epidural steroid injection (02/22/14) Status post hemorrhoidectomy Social History marital status: household members: spouse Smoking Status: Never smoker alcohol intake: current substance use type: does not use Smoking Status: Never smoker alcohol intake frequency: other Substance Use Type: does not use Exam Narrative Exam Narrative: GENERAL: Alert, cooperative and in no distress. HEAD: Atraumatic. Normocephalic. EYES: Sclera are clear without icterus. Extraocular movements are full. ENT: No rhinorrhea. NECK: Supple. Full range of motion. CARDIOVASCULAR: Normal rate and rhythm without murmur gallop or rub. RESPIRATORY: Clear to auscultation. Breath sounds equal bilaterally. No wheezes, rales, or rhonchi. GASTROINTESTINAL: Abdomen soft, non-tender, nondistended. EXTREMITIES: No significant peripheral edema. Left calf is quite a bit larger than the right. Has tenderness of the posterior aspect of the left calf. Homans sign is negative. Also has some proximal tenderness in the medial left thigh. BACK: Normal inspection, no CVA tenderness. NEURO: Nonfocal examination, normal speech SKIN: No rash or erythema of visible areas PSYCH: Normally oriented. Normal range of affect. Appropriate behavior Initial Vital Signs Initial Vital Signs: Vital Signs Temperature 97.5 F L 01/26/22 16:10 Pulse Rate 70 01/26/22 16:10 Respiratory Rate 15 01/26/22 16:10 Blood Pressure 170/100 H 01/26/22 16:10 Pulse Oximetry 98 01/26/22 16:10 Oxygen Delivery Method 01/26/22 16:10 Course Orders Ordered: ED Orders 01/26/22 16:18 US periph venous low extrem lt Stat Apixaban (Apixaban 5 Mg Tablet) 10 mg PO NOW ONE Stop: 01/26/22 21:48 Vital Signs Vital signs: Vital Signs - 8 hr 01/26/22 16:10 01/26/22 16:15 Temperature 97.5 F L 98.5 F Pulse Rate 70 70 Respiratory Rate 15 Blood Pressure 170/100 H 147/95 H Pulse Oximetry 98 98 Oxygen Delivery Method Room Air Room Air MDM - Extremity (Nontraumatic) Imaging Data US - DVT: Radiologist's Impression: IMPRESSION: Abnormal study demonstrating occlusive thrombus in the left popliteal vein. Dictated by: Shira Valencia MD, PhD on 01/26/2022 at 16:57 Approved by: Shira Valencia MD, PhD on 01/26/2022 at 16:59 [facility] Narrative Medical decision making narrative: Deep vein thrombosis identified in the popliteal vein. Will treat with direct acting oral anticoagulant for at least 3 months. No respiratory symptoms. Return precautions given. Discharge Plan Departure Patient Disposition: Home Clinical Impression: DVT of lower extremity (deep venous thrombosis) Instructions: DI for Deep Vein Thrombosis Activity Restrictions/Additional Instructions: You have a deep vein thrombosis in this leg. The risk of this is direct harm to the venous system in your leg as well as the potential for pulmonary embolism. Take the direct acting oral anticoagulant (apixaban) 10 mg twice a day for 7 days followed by 5 mg twice daily. Follow-up with your primary care doctor in the next week to discuss ongoing management and further workup as indicated. Follow-up right away for worsening leg swelling or for any respiratory or chest symptoms. Prescriptions: New apixaban 5 mg (74 tabs) tablets,dose pack 5 mg PO BID Qty: 74 0RF Rx Instructions: Take 2 tablets twice daily for the 1st 7 days and then 1 tablet twice daily No Action losartan-hydrochlorothiazide 50-12.5 mg tablet 1 tab PO DAILY Qty: 90 3RF Referrals: Zachary Chandler MD [Primary Care Provider] -
[2022-01-26] MEDS: APIXABAN 5 MG TABLET 10 MG PO (21:51)
[2022-01-26 21:57] VITALS: BP 155/98; PULSE 62; RESP 22; TEMP 36.6; O2SAT 98
== END 2022-01-26 21:59 | disposition home or self-care (01) ==
PROVIDERS: Emergency Provider Family Medicine Addiction Medicine; PCP Family Medicine
DX: I82.402 Acute embolism and thrombosis of unspecified deep veins of left lower extremity (principal)
CPT/HCPCS: 93971; 99283

== ENCOUNTER → 2022-06-15 10:23 | Outpatient (CLI) | payer OTHER, SELFPAY ==
[2022-06-18 15:09] LABS: Cardiolipin Ab IgA <9 APL U/mL (0-11); Cardiolipin Ab IgG <9 GPL U/mL (0-14); Cardiolipin Ab IgM 18 MPL U/mL (0-12)
[2022-06-18 18:07] LABS: Protein C-Functional 107 % (73-180); Protein S-Functional 98 % (63-140)
[2022-06-18 19:28] LABS: Dilute Russell Viper Venom 41.4 sec (0.0-47.0); Lupus Reflex Interpretation Comment: (.); PTT-LA 43.5 sec (0.0-43.5)
== END ==
PROVIDERS: PCP Family Medicine; Referring Provider Family Medicine; Visit Provider Family Medicine
DX: I82.409 Acute embolism and thrombosis of unspecified deep veins of unspecified lower extremity (principal); N52.9 Male erectile dysfunction, unspecified
CPT/HCPCS: 36415; 81241; 85303; 85306; 85598; 85613; 86147

== ENCOUNTER → 2022-11-10 14:24 | Outpatient (CLI) | payer OTHER, SELFPAY ==
--- NOTE | 2022-11-10 14:25 | DI.US.S_ITS ---
PROCEDURE: US PERIP VENOUS LOW EXTREM LT INDICATIONS: HISTORY OF POPLITEAL DEEP VEIN THROMBOSIS TECHNIQUE: Real-time imaging, as well as color and pulse Doppler interrogation, were performed of the lower extremity deep veins from the inguinal ligament to the popliteal fossa, with documentation of the visualized calf veins. COMPARISON: [facility], [facility] VENOUS LOW EXTREM LT, 01/26/2022, 16:24. FINDINGS: The common femoral, femoral, popliteal, and the visualized calf veins are normally compressible, and free of intraluminal thrombus. Color and pulse Doppler demonstrate normal phasic intraluminal flow. There is normal augmentation response to distal compression maneuver. IMPRESSION: No findings of lower extremity deep venous thrombosis. Dictated by: Arthur Solis M.D. on 11/10/2022 at 14:16 Approved by: Arthur Solis M.D. on 11/10/2022 at 14:17
[2022-11-10 15:10] LABS: Add Manual Diff / Slide Review NO; Basophils Absolute Auto 0 /uL (0-100); Basophils Percent Auto 1.1 % (0-2); Eosinophils Absolute Auto 100 /uL (0-450); Hematocrit 41.6 % (41-53); Hemoglobin 14.3 g/dL (13.5-17.5); Lymphocytes Absolute Auto 1500 /uL (1100-4500); Lymphocytes Percent Auto 34.7 % (25-40); Mean Corpuscular HGB Conc 34.4 % (30-36); Mean Corpuscular Hemoglobin 29.1 PG (26-34); Mean Corpuscular Volume 84.6 fL (80-100); Monocytes Absolute Auto 400 /uL (0-900); Monocytes Percent Auto 8.4 % (3-14); Neutrophils Absolute Auto 2300 /uL (1500-7000); Neutrophils Percent Auto 53.8 % (50-75); Platelet Count 144 X10^3/uL (150-400); Red Blood Cell Count 4.92 X10^6/uL (4.5-5.9); Red Cell Distribution Width 13.8 % (11.6-14.8); White Blood Cell Count 4.2 X10^3/uL (4.5-11.0)
[2022-11-10 15:22] LABS: Hemoglobin A1C% w Est Avg Glu 5.7 % (4.0-6.0)
[2022-11-10 15:29] LABS: D Dimer 374 ng/ml (<500)
[2022-11-10 15:35] LABS: Alanine Aminotransferase 26 IU/L (<50); Albumin 4.3 g/dL (3.5-5.0); Albumin Globulin Ratio 1.4 (1.0-2.8); Alkaline Phosphatase 57 U/L (38-126); Aspartate Aminotransferase 31 IU/L (17-59); BUN Creatinine Ratio 15.5 (6-22); Bilirubin Total 0.5 mg/dL (0.2-1.3); Blood Urea Nitrogen 13 mg/dL (9-20); Calcium 8.9 mg/dL (8.4-10.2); Carbon Dioxide 28 mmol/L (22-32); Chloride 103 mmol/L (98-107); Cholesterol 185 mg/dL (140-199); Estimated Glomerular Filt Rate > 60 mL/min (>60); Glucose 92 mg/dL (80-110); HDL Cholesterol 32 mg/dL (40-60); HEMOLYSIS < 15 (0-50); LDL Cholesterol Calculated 118 mg/dL (<100); Potassium 4.4 mmol/L (3.4-5.1); Sodium 138 mmol/L (137-145); Total Protein 7.3 g/dL (6.3-8.2); Triglycerides 176 mg/dL (35-150)
[2022-11-10 16:02] LABS: TSH w/ Reflex to FT4 1.79 uIU/mL (0.47-4.68)
== END ==
PROVIDERS: PCP Family Medicine; Referring Provider Physician Assistant; Visit Provider Physician Assistant
DX: I82.432 Acute embolism and thrombosis of left popliteal vein (principal); E78.5 Hyperlipidemia, unspecified; R07.9 Chest pain, unspecified; R73.09 Other abnormal glucose
CPT/HCPCS: 36415; 80053; 80061; 83036; 84443; 85025; 85379; 93971

== ENCOUNTER → 2024-01-16 09:24 | Outpatient (CLI) | payer OTHER, SELFPAY ==
[2024-01-16 11:16] LABS: Add Manual Diff / Slide Review NO; Basophils Absolute Auto 0 /uL (0-100); Eosinophils Absolute Auto 100 /uL (0-450); Eosinophils Percent Auto 2.7 % (2-4); Hematocrit 41.8 % (41-53); Hemoglobin 14.1 g/dL (13.5-17.5); Lymphocytes Absolute Auto 1400 /uL (1100-4500); Lymphocytes Percent Auto 30.3 % (25-40); Mean Corpuscular HGB Conc 33.8 % (30-36); Mean Corpuscular Hemoglobin 28.8 PG (26-34); Mean Corpuscular Volume 85.4 fL (80-100); Monocytes Absolute Auto 400 /uL (0-900); Monocytes Percent Auto 8.8 % (3-14); Neutrophils Absolute Auto 2700 /uL (1500-7000); Neutrophils Percent Auto 57.2 % (50-75); Platelet Count 146 X10^3/uL (150-400); Red Blood Cell Count 4.89 X10^6/uL (4.5-5.9); Red Cell Distribution Width 13.7 % (11.6-14.8); White Blood Cell Count 4.6 X10^3/uL (4.5-11.0)
[2024-01-16 12:07] LABS: Alanine Aminotransferase 30 IU/L (<50); Albumin 4.2 g/dL (3.5-5.0); Albumin Globulin Ratio 1.5 (1.0-2.8); Alkaline Phosphatase 63 U/L (38-126); Aspartate Aminotransferase 39 IU/L (17-59); BUN Creatinine Ratio 16.3 (6-22); Bilirubin Total 0.8 mg/dL (0.2-1.3); Blood Urea Nitrogen 14 mg/dL (9-20); Calcium 8.9 mg/dL (8.4-10.2); Carbon Dioxide 26 mmol/L (22-32); Chloride 106 mmol/L (98-107); Cholesterol 171 mg/dL (140-199); Estimated Glomerular Filt Rate > 60 mL/min (>60); Globulin 2.8 g/dL (1.7-4.1); Glucose 96 mg/dL (80-110); HDL Cholesterol 38 mg/dL (40-60); HEMOLYSIS < 15 (0-50); LDL Cholesterol Calculated 113 mg/dL (<100); Potassium 3.9 mmol/L (3.4-5.1); Sodium 140 mmol/L (137-145); Triglycerides 99 mg/dL (35-150)
[2024-01-16 12:13] LABS: NT-proBNP (BNP-Adult 18+) 117 pg/mL (<125)
[2024-01-16 12:34] LABS: Prostate Specific Antigen 2.28 ng/mL (0.10-4.00)
[2024-01-16 12:38] LABS: TSH w/ Reflex to FT4 1.89 uIU/mL (0.47-4.68)
== END ==
PROVIDERS: PCP Family Medicine; Referring Provider Family Medicine; Visit Provider Family Medicine
DX: I82.432 Acute embolism and thrombosis of left popliteal vein (principal); I10 Essential (primary) hypertension; R73.09 Other abnormal glucose; R60.0 Localized edema; Z86.718 Personal history of other venous thrombosis and embolism
CPT/HCPCS: 36415; 80053; 80061; 83880; 84153; 84443; 85025

== ENCOUNTER 2024-01-21 19:42 | Emergency (ER) | payer OTHER, SELFPAY ==
[2024-01-21 19:46] VITALS: BP 186/103; PULSE 61; RESP 16; TEMP 37.1; O2SAT 99; BMI 33.7
--- NOTE | 2024-01-21 19:57 | ED_ITS ---
HPI - Wound/Laceration General Chief Complaint: Wound/Laceration Stated Complaint: stepped on a nail on both feet Time Seen by Provider: 01/21/24 19:57 Source: patient Mode of arrival: Ambulatory History of Present Illness HPI narrative: Patient is a 64-year-old male with a past medical history of hypertension presents to the emergency department for evaluation of pain to bilateral feet. He states that earlier today he was at home with his boots and he stepped on a board with nails in it. States that it did stick to his foot/shoe was able to get it off. Not up-to-date on tetanus. Complaining of pain to bilateral feet right worse than left otherwise is able to stand bear weight ambulate slowed secondary to pain. Related Data Previous Rx's Medication Instructions Recorded ciprofloxacin HCl 500 mg tablet 500 mg PO BID 7 days #14 tabs 01/21/24 (Cipro) Allergies Allergy/AdvReac Type Severity Reaction Status Date / Time gabapentin [GABAPENTIN] Allergy Severe suicidal Verified 01/16/24 09:00 ibuprofen Allergy Mild HEADACHE Verified 01/16/24 09:00 nortriptyline Allergy Mild [place] not Verified 01/16/24 09:00 there, angry Review of Systems Review of Systems Narrative: General: Denies fever, chills, weight loss HEENT: Denies headache, eye drainage, eye irritation, head trauma, sore throat, voice change Cardiovascular: Denies any chest pain, palpitations, shortness of breath, tachycardia Respiratory: Denies any shortness of breath, cough, wheeze, stridor GI/: Denies any abdominal pain, nausea, vomiting, diarrhea, bright red blood per rectum, melanotic stools, urinary frequency, urinary retention, dysuria, hematuria MSK: Positive bilateral foot pain Skin: Denies any rashes, lesions, discoloration Neuro: Denies any headache, lightheadedness, dizziness, fainting, weakness Psych: Denies SI/HI Patient History Medical History (Updated 01/21/24 @ 22:38 by Manoj Choi DO) 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) Toe pain, right Hematoma Impaired respiratory function due to exposure to chemical Left thumb sprain Right shoulder injury Obstructive sleep apnea Snoring Vertigo DDD (degenerative disc disease), lumbar DDD (degenerative disc disease), cervical Sciatica Midline low back pain Arthritis of left hip Psoriasis Surgical History History of colonoscopy with polypectomy (04/09/13) History of elbow surgery (09/16/16) History of cervical discectomy (09/2014) Status post epidural steroid injection (02/22/14) History of arthroscopy of right knee History of arthroscopy of left knee History of arthroscopy of left knee History of bunionectomy of right great toe (07/06/13) Status post hemorrhoidectomy History of carpal tunnel repair (07/28/12) Status post cholecystectomy Status post arthroscopy Social History marital status: household members: spouse Smoking Status: Never smoker alcohol intake: current substance use type: does not use Smoking Status: Never smoker alcohol intake frequency: other Substance Use Type: does not use Exam Narrative Exam Narrative: General: Cooperative, comfortable, well-developed, not in acute distress HEENT: Normocephalic, atraumatic, PERRLA, normal sclera, eyelids normal, Neck: Active full range of motion, atraumatic Chest: Normal to inspection, negative crepitus, no overlying erythema ecchymosis Respiratory: Normal respiratory effort, not in acute respiratory distress, jesus ar to auscultation bilaterally negative cough, wheeze, tachypnea, rhonchi, rales Cardiology: Regular rate rhythm negative gallop, murmur, rubs GI/: Normal to inspection, soft, nonrigid, no tenderness to palpation, exam deferred MSK: Full range of active range of motion of all 4 extremities, atraumatic Skin: Patient with puncture wounds noted to the bottom of bilateral feet, right side at the base of the great toe, left side at the mid foot, not actively bleeding neurovascularly intact Neuro: Alert awake oriented x3, moves all 4 extremities spontaneously, cranial nerves intact, able to answer all questions appropriately follows commands appropriately Psych: Cooperative, negative suicidal or homicidal ideations Initial Vital Signs Initial Vital Signs: Vital Signs Temperature 98.7 F 01/21/24 19:46 Pulse Rate 61 01/21/24 19:46 Respiratory Rate 16 01/21/24 19:46 Blood Pressure 186/103 H 01/21/24 19:46 Pulse Oximetry 99 01/21/24 19:46 Oxygen Delivery Method Room Air 01/21/24 19:46 Course Orders Ordered: ED Orders 01/21/24 20:06 XR foot LT min 3V Stat XR foot RT min 3V Stat Discontinued Medications Ciprofloxacin (Ciprofloxacin 250 Mg Tablet) 500 mg PO NOW ONE Stop: 01/21/24 22:35 Diphtheria/Tetanus/Acell Pertussis (Tet,Diph,Pertuss(Acell),Vac/Pf 0.5 Ml Syringe) 0.5 ml IM .ONCE ONE Stop: 01/21/24 20:07 Last Admin: 01/21/24 20:50 Dose: 0.5 ml Documented By: NIKKI Vital Signs Vital signs: Vital Signs - 8 hr 01/21/24 19:46 Temperature 98.7 F Pulse Rate 61 Respiratory Rate 16 Blood Pressure 186/103 H Pulse Oximetry 99 Oxygen Delivery Method Room Air MDM - Wound/Laceration Imaging Data Extremity x-ray #1: Radiologist's Impression: [address] [address] XRay Report Signed Patient: Tommy Perez MR#: [id number] : 1960 Acct:[id number] Age/Sex: 64 / M Date of Service: 01/21/24 Loc: ED Accession Number: [id number] Procedure: XR foot LT min 3V Ordering Provider: Manoj Choi D.O. PROCEDURE: XR FOOT LT MIN 3V INDICATIONS: Stepped on nail rule out foreign body TECHNIQUE: 3 views of the foot were acquired. COMPARISON: [facility], , XR FOOT RT MIN 3V, 06/04/2020, 15:37. FINDINGS: Bones: No fractures or dislocations. Osteoarthritic changes are noted throughout left foot. Small plantar and dorsal calcaneal enthesophytes are seen. No suspicious bony lesions. Soft tissues: No tibiotalar joint effusion. Achilles tendon appears normal. No radiopaque foreign bodies. IMPRESSION: Osteoarthritic changes throughout left foot. No acute left foot fracture or dislocation. No radiopaque foreign bodies. Extremity x-ray #2: Radiologist's Impression: [address] [address] XRay Report Signed Patient: Tommy Perez MR#: [id number] : 1960 Acct:[id number] Age/Sex: 64 / M Date of Service: 01/21/24 Loc: ED Accession Number: [id number] Procedure: XR foot RT min 3V Ordering Provider: Manoj Choi D.O. PROCEDURE: XR FOOT RT MIN 3V INDICATIONS: Stepped on nail rule out foreign body TECHNIQUE: 3 views of the foot were acquired. COMPARISON: [facility], , XR FOOT RT MIN 3V, 06/04/2020, 15:37. FINDINGS: Bones: Postsurgical changes are noted in right great toe with surgical fusion. No obvious hardware loosening or failure is seen. No acute fracture or dislocation. Partial bony union is seen at 1st MTP joint. No suspicious bony lesions. Small plantar calcaneal enthesophyte is seen. Soft tissues: No tibiotalar joint effusion. Achilles tendon appears normal. No other radiopaque foreign bodies. IMPRESSION: Surgical hardware across 1st MTP joint. No acute fracture or dislocation. No other radiopaque foreign bodies. MDM Narrative Medical decision making narrative: Patient is a 64-year-old male no significant past medical history presents for evaluation of puncture wounds to his feet states he was wearing his boots stepped on would blink with nails, x-ray was performed here no foreign bodies noted, patient will be sent home on antibiotics with Pseudomonas coverage given puncture wound. First dose here sent home with prescription strict return precautions given he verbalized understanding of this agrees to being discharged home with outpatient follow up he was instructed follow up with his primary care doctor and consulting practice director in outpatient setting. Safe for discharge home Discharge Plan Departure Patient Disposition: Home Clinical Impression: Puncture wound of foot Activity Restrictions/Additional Instructions: Please follow up with the primary care doctor and your consulting practice director Please read the discharge instructions sheet carefully and bring all papers to all doctor follow-up visits, as it may contain information that your doctor may want to see. Disease processes change and evolve, if your symptoms worsen or if you develop any new symptoms that are concerning to you please return for evaluation. Your evaluation today does not show any evidence of any life- threatening/serious illnesses requiring admission to the hospital or surgery. Please follow-up with your doctor for re-evaluation in approximately 1 day. Seek immediate medical attention for any worrisome symptoms. Prescriptions: New ciprofloxacin HCl [Cipro] 500 mg tablet 500 mg PO BID 7 Days Qty: 14 0RF Referrals: Zachary Chandler MD [Primary Care Provider] - Stand Alone Forms: Patient Portal/API/Survey
--- NOTE | 2024-01-21 20:06 | DI.RAD.S_ITS ---
PROCEDURE: XR FOOT RT MIN 3V INDICATIONS: Stepped on nail rule out foreign body TECHNIQUE: 3 views of the foot were acquired. COMPARISON: [facility], CR, XR FOOT RT MIN 3V, 06/04/2020, 15:37. FINDINGS: Bones: Postsurgical changes are noted in right great toe with surgical fusion. No obvious hardware loosening or failure is seen. No acute fracture or dislocation. Partial bony union is seen at 1st MTP joint. No suspicious bony lesions. Small plantar calcaneal enthesophyte is seen. Soft tissues: No tibiotalar joint effusion. Achilles tendon appears normal. No other radiopaque foreign bodies. IMPRESSION: Surgical hardware across 1st MTP joint. No acute fracture or dislocation. No other radiopaque foreign bodies. Dictated by: Sunny Macedo M.D. on 01/21/2024 at 21:05 Approved by: Sunny Macedo M.D. on 01/21/2024 at 21:08
--- NOTE | 2024-01-21 20:06 | DI.RAD.S_ITS ---
PROCEDURE: XR FOOT LT MIN 3V INDICATIONS: Stepped on nail rule out foreign body TECHNIQUE: 3 views of the foot were acquired. COMPARISON: [facility], CR, XR FOOT RT MIN 3V, 06/04/2020, 15:37. FINDINGS: Bones: No fractures or dislocations. Osteoarthritic changes are noted throughout left foot. Small plantar and dorsal calcaneal enthesophytes are seen. No suspicious bony lesions. Soft tissues: No tibiotalar joint effusion. Achilles tendon appears normal. No radiopaque foreign bodies. IMPRESSION: Osteoarthritic changes throughout left foot. No acute left foot fracture or dislocation. No radiopaque foreign bodies. Dictated by: Sunny Macedo M.D. on 01/21/2024 at 21:08 Approved by: Sunny Macedo M.D. on 01/21/2024 at 21:09
[2024-01-21] MEDS: TET,DIPH,PERTUSS(ACELL),VAC/PF 0.5 ML SYRINGE IM (20:50)
[2024-01-21] MEDS: CIPROFLOXACIN 250 MG TABLET 500 MG PO (22:40)
[2024-01-21 22:52] VITALS: BP 178/107; PULSE 62; RESP 16; O2SAT 99
== END 2024-01-21 22:49 | disposition home or self-care (01) ==
PROVIDERS: Emergency Provider Student in an Organized Health Care Education/Training Program; PCP Family Medicine
DX: S91.332A Puncture wound without foreign body, left foot, initial encounter (principal); S91.331A Puncture wound without foreign body, right foot, initial encounter; W45.0XXA Nail entering through skin, initial encounter; Z23 Encounter for immunization
CPT/HCPCS: 73630; 90471; 99283; 90715

== ENCOUNTER → 2024-01-24 08:33 | Outpatient (CLI) | payer OTHER, SELFPAY ==
--- NOTE | 2024-01-24 08:34 | DI.US.S_ITS ---
PROCEDURE: US PERIP VENOUS LOW EXTREM RT INDICATIONS: lower leg sweeling TECHNIQUE: Real-time imaging, as well as color and pulse Doppler interrogation, were performed of the lower extremity deep veins from the inguinal ligament to the popliteal fossa, with documentation of the visualized calf veins. COMPARISON: [facility], [facility] VENOUS LOW EXTREM LT, 11/10/2022, 14:46. [facility], PERIP VENOUS LOW EXTREM LT, 01/26/2022, 16:24. FINDINGS: There is thrombus seen within the profunda femoris vein. Within the femoral vein, there is partially occlusive thrombus seen proximally and occlusive thrombus seen distally. There is nonocclusive thrombus seen within the popliteal vein. The calf veins are not well seen, secondary to body habitus. IMPRESSION: Multifocal right lower extremity deep venous thrombosis seen, including occlusive thrombus within the distal femoral vein. Note: Concordant preliminary findings given by the children's nursery assistant upon the completion of the examination to Dr. Chandler's office. Dictated by: Arthur Solis M.D. on 01/24/2024 at 9:55 Approved by: Arthur Solis M.D. on 01/24/2024 at 9:57
== END ==
PROVIDERS: PCP Family Medicine; Referring Provider Family Medicine; Visit Provider Family Medicine
DX: I82.411 Acute embolism and thrombosis of right femoral vein (principal); I82.431 Acute embolism and thrombosis of right popliteal vein; M79.89 Other specified soft tissue disorders
CPT/HCPCS: 93971

== ENCOUNTER → 2024-02-20 06:53 | Outpatient (CLI) | payer OTHER, SELFPAY ==
--- NOTE | 2024-02-20 06:54 | DI.ECHO.S_ITS ---
[facility]+ [facility] : : [address] : : [place] : : [id number] : : Phone: [phone] Echocardiogram Report + + :Name: AMADA YANEZ Study Date: 02/20/2024 Height: 72 in : :Hospital ReadingLocation: Weight: 245 lb : : Gender: Male BSA: 2.3 m2 : :: 1960 Age: 64 yrs BP: 152/94 mmHg: :Reason For Study: SWELLING IN FEET, IRREGULAR HEART RATE : :Ordering Physician: JORDAN, : :SISI Performed By: Rachel Alfaro : :Referring: SISI ORTEGA : + + Interpretation Summary Normal left ventricle size with ejection fraction 60-65%. Mild biatrial enlargement. Mild aortic regurgitation. The ascending aorta is mildly enlarged. Procedure: A two-dimensional transthoracic echocardiogram with color flow and Doppler was performed. The study quality was technically adequate. There is no prior echocardiogram noted for this patient. The patient had occasional PVCs during the exam. The patient was in sinus rhythm with heart rates between 58-65 bpm during the exam. Left Ventricle: The left ventricle is normal in size and wall thickness. The ejection fraction is estimated to be 60-65%. There are no focal wall motion abnormalities. Diastolic parameters suggest probable normal left ventricular diastolic function and normal filling pressures. Right Ventricle: The right ventricle is normal in size and function. Atria: There is mild biatrial enlargement. There is no Doppler evidence for an interatrial shunt. Mitral Valve: The mitral valve leaflets appear mildly thickened, but open well. The mitral valve leaflets appear to open well. There is no mitral regurgitation noted. Aortic Valve: The aortic valve is trileaflet. The aortic valve opens well. There is no aortic valve stenosis. There is mild aortic regurgitation. Tricuspid Valve: The tricuspid valve leaflets are thin and pliable. There is trace tricuspid regurgitation. Pulmonary artery pressures cannot be estimated because of the lack of a measurable TR jet velocity but the IVC suggests a CVP of around 8 mmHg. Pulmonic Valve: The pulmonic valve is not well visualized. There is mild to moderate pulmonic regurgitation. Great Vessels: The aortic root is borderline dilated. The ascending aorta is mildly enlarged. The IVC is dilated (diameter is greater than 2.1 cm) yet it collapses greater than 50% with a sniff. This suggests a right atrial pressure of 8 mm Hg. Pericardium/ Pleura There is no pericardial effusion. There is no pleural effusion. MMode/2D Measurements & Calculations LVIDd: 5.7 cm LVOT diam: 2.2 cm LVIDs: 3.6 cm Ao root diam: 4.2 cm FS: 37.6 % asc Aorta Diam: 4.0 cm EPSS: 0.73 cm Ao Arch Diam (Prox Trans): 4.0 cm IVSd: 1.0 cm LVPWd: 1.0 cm LV tidwell. diameter/BSA (cm/m^2): 2.5 LV sys. diameter/BSA (cm/m^2): 1.5 LA A2 area: 22.2 cm2 RA long axis: 6.1 cm LA A4 area: 24.1 cm2 RA area: 26.5 cm2 LA length (vol): 5.7 cm RA vol: 97.6 ml LA vol: 79.1 ml RA : 42.0 ml/m2 LA vol index: 34.1 ml/m2 IVC diam: 2.5 cm RVD1 (basal): 4.2 cm RVD2 (mid): 4.5 cm TAPSE: 1.7 cm Doppler Measurements & Calculations Ao V2 max: 171.9 cm/sec LVOT Max Guero: 111.7 cm/sec Ao V2 mean: 112.8 cm/sec LV V1 max P.0 mmHg Ao max P.8 mmHg LV V1 VTI: 23.9 cm Ao mean P.8 mmHg SANDRINE(I,D): 2.7 cm2 Ao V2 VTI: 34.1 cm SANDRINE(V,D): 2.5 cm2 sev ratio: 0.70 SANDRINE indexed to BSA (cm^2/m^2): 1.2 MV E max guero: 43.0 cm/sec PA V2 max: 113.8 cm/sec MV A max guero: 56.6 cm/sec PA V2 mean: 72.2 cm/sec MV E/A: 0.76 PA mean P.4 mmHg Med Peak E' Guero: 6.7 cm/sec PA pr(Accel): 29.3 mmHg E/E' med: 6.5 Lat Peak E' Guero: 9.1 cm/sec E/E' lat: 4.7 E/e' average: 5.6 MV dec time: 0.20 sec SV(LVOT): 93.2 ml Electronically signed by: Liz Lamb on Reading Physician:02/20/2024 08:43 AM
== END ==
LOC: ECHO 06:53
PROVIDERS: PCP Family Medicine; Referring Provider Family Medicine; Visit Provider Family Medicine
DX: I35.1 Nonrheumatic aortic (valve) insufficiency (principal); I37.1 Nonrheumatic pulmonary valve insufficiency; I77.89 Other specified disorders of arteries and arterioles; I10 Essential (primary) hypertension; R60.0 Localized edema
CPT/HCPCS: 93306

== ENCOUNTER 2024-08-31 10:03 | Emergency (ER) | payer OTHER, SELFPAY ==
[2024-08-31] VITALS (11 sets, daily range): BP systolic 126–161; BP diastolic 73–94; PULSE 55–68; RESP 14–21; TEMP 36.7; O2SAT 95–98; BMI 33.5
--- NOTE | 2024-08-31 10:23 | ED_ITS ---
HPI - Chest Pain General Chief Complaint: Hypertension Stated Complaint: Low pulse up and down / BP all over the place Time Seen by Provider: 08/31/24 10:08 Source: patient Mode of arrival: Ambulatory Limitations: no limitations History of Present Illness HPI narrative: 64-year-old gentleman history of bilateral DVT lower extremity currently on Pradaxa and history of hypertension previously on losartan but with ED and low BP stopped taking it presents with blood pressure and heart rate all over the place for the last few months along with right-sided chest pain intermittently also for the past few months tried to call the office for an appointment told to come to the ER to be evaluated at this time. States blood pressure was 1 60s over 90 at the dentist last week and was turned away because the blood pressure was poorly controlled so he was unable to have any dental procedure completed. He is not having active chest pain shortness breath dyspnea on exertion leg pain or leg swelling at this time. Other than what is stated 14 point review of system is negative. Related Data Previous Rx's ?Medication ?Instructions ?Recorded losartan 25 mg tablet 25 mg PO DAILY #30 tabs 01/12 05/07 apixaban 5 mg tablet 5 mg PO BID #180 tabs Allergies Allergy/AdvReac Type Severity Reaction Status Date / Time gabapentin (GABAPENTIN) Allergy Severe suicidal Verified 08/31/24 10:14 ibuprofen Allergy Mild [place] Verified 08/31/24 10:14 nortriptyline Allergy Mild [place] not Verified 08/31/24 10:14 there, angry Review of Systems Review of Systems ROS Unobtainable: All systems reviewed & are unremarkable except as noted in HPI and below Patient History Medical History (Updated 08/31/24 @ 13:27 by Martir Bruce DO) Deep vein thrombosis (DVT) of popliteal vein of left lower extremity Injury of meniscus of right knee 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-sided 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) Toe pain, right Hematoma Impaired respiratory function due to exposure to chemical Left thumb sprain Right shoulder injury Obstructive sleep apnea Snoring Vertigo DDD (degenerative disc disease), lumbar DDD (degenerative disc disease), cervical Sciatica Midline low back pain Arthritis of left hip Psoriasis Surgical History History of colonoscopy with polypectomy (04/09/13) History of elbow surgery (09/16/16) History of cervical discectomy (09/2014) Status post epidural steroid injection (02/22/14) History of arthroscopy of right knee History of arthroscopy of left knee History of arthroscopy of left knee History of bunionectomy of right great toe (07/06/13) Status post hemorrhoidectomy History of carpal tunnel repair (07/28/12) Status post cholecystectomy Status post arthroscopy Social History marital status: household members: spouse Smoking Status: Never smoker alcohol intake: current substance use type: does not use Smoking Status: Never smoker alcohol intake frequency: other Exam Narrative Exam Narrative: GENERAL: [64] year old patient appears stated age. Well-developed patient, in mild distress. HEAD: Atraumatic. Normocephalic. EYES: Pupils equal round and reactive. Extraocular motions intact. No scleral icterus. No injection or drainage. ENT: Nose without bleeding, purulent drainage. Throat without erythema, tonsillar hypertrophy or exudate. Airway patent. NECK: Trachea midline. Non tender CARDIOVASCULAR: Regular rate and rhythm without murmurs, gallops, or rubs. RESPIRATORY: Clear to auscultation. Breath sounds equal bilaterally. No wheezes, rales, or rhonchi. GASTROINTESTINAL: Abdomen soft, non-tender, nondistended. EXTREMITIES: No edema or joint tenderness. BACK: Nontender without deformity or crepitance. No flank tenderness. NEURO: AOx3. SKIN: No rash or erythema of visible areas Initial Vital Signs Initial Vital Signs: Vital Signs Pulse Rate 60 08/31/24 10:09 Pulse Oximetry 98 08/31/24 10:09 Scores HEART Score Heart Score history: Slightly Suspicious Heart Score EKG: Non-Specific repolarization disturbance Heart Score Age: 45-64 years old Heart Score risk factors: 1-2 risk factors Heart Score troponin: < or = to normal limit Heart Score Total: 3 Course Orders Ordered: ED Orders 08/31/24 10:27 XR chest 1V Stat EKG-12 Lead Stat 08/31/24 10:40 Complete Blood Count AUTO DIFF Stat Comprehensive Metabolic Panel Stat Lipase Stat MAG [Magnesium] Stat TSH [Thyroid Stimulating Hormone] Stat Troponin & CK Cardiac Panel Stat 08/31/24 12:30 EKG-12 Lead Stat 08/31/24 12:35 Trop I [Troponin I] Stat Vital Signs Vital signs: Vital Signs - 8 hr 08/31/24 10:09 08/31/24 10:11 08/31/24 10:11 Temperature Pulse Rate 60 58 L Respiratory Rate Blood Pressure 161/94 H Pulse Oximetry 98 98 Oxygen Delivery Method 08/31/24 10:14 08/31/24 10:30 08/31/24 10:31 Temperature 98.1 F Pulse Rate 68 60 60 Respiratory Rate 20 21 17 Blood Pressure 161/94 H Pulse Oximetry 98 95 95 Oxygen Delivery Method Room Air 08/31/24 10:31 08/31/24 11:00 08/31/24 11:00 Temperature Pulse Rate 68 Respiratory Rate 18 Blood Pressure 144/73 H 137/77 Pulse Oximetry 97 Oxygen Delivery Method 08/31/24 11:30 08/31/24 11:30 08/31/24 12:00 Temperature Pulse Rate 55 L 57 L Respiratory Rate 21 21 Blood Pressure 126/81 Pulse Oximetry 95 95 Oxygen Delivery Method 08/31/24 12:00 08/31/24 12:30 08/31/24 12:30 Temperature Pulse Rate 55 L Respiratory Rate 18 Blood Pressure 135/90 144/92 H Pulse Oximetry 96 Oxygen Delivery Method 08/31/24 13:00 08/31/24 13:00 Temperature Pulse Rate 63 Respiratory Rate 14 Blood Pressure 130/85 Pulse Oximetry 96 Oxygen Delivery Method MDM - Chest Pain Lab Data 08/31/24 10:40 08/31/24 10:40 Labs: Lab Results 08/31/24 08/31/24 Range/Units 10:40 12:35 WBC 3.4 L (4.5-11.0) X10^3/uL RBC 4.76 (4.5-5.9) X10^6/uL Hgb 13.9 (13.5-17.5) g/dL Hct 41.4 (41-53) % MCV 87.0 (80-100) fL MCH 29.2 (26-34) PG MCHC 33.6 (30-36) % RDW 13.9 (11.6-14.8) % Plt Count 116 L (150-400) X10^3/uL Neut % (Auto) 57.8 (50-75) % Lymph % (Auto) 32.2 (25-40) % [place] % (Auto) 7.5 (3-14) % Eos % (Auto) 1.4 L (2-4) % Baso % (Auto) 1.1 (0-2) % Neut # (Auto) 2000 (1897-6351) /uL Lymph # (Auto) 1100 (6299-9311) /uL [place] # (Auto) 300 (0-900) /uL Eos # (Auto) 0 (0-450) /uL Baso # (Auto) 0 (0-100) /uL Sodium 140 (137-145) mmol/L Potassium 3.9 (3.4-5.1) mmol/L Chloride 108 H (98-107) mmol/L Carbon Dioxide 25 (22-32) mmol/L BUN 13 (9-20) mg/dL Creatinine 0.90 (0.66-1.25) mg/dL Estimated GFR > 60 (>60) mL/min BUN/Creatinine Ratio 14.4 (6-22) Glucose 144 H (70-99) mg/dL Calcium 8.9 (8.4-10.2) mg/dL Magnesium 2.2 (1.6-2.3) mg/dL Total Bilirubin 1.0 (0.2-1.3) mg/dL AST 34 (17-59) IU/L ALT 28 (<50) IU/L Alkaline Phosphatase 56 (38-126) U/L Total Creatine Kinase 220 H (55-170) U/L Troponin I < 0.012 < 0.012 (0.01-0.034) ng/mL Total Protein 6.4 (6.3-8.2) g/dL Albumin 4.1 (3.5-5.0) g/dL Globulin 2.3 (1.7-4.1) g/dL Albumin/Globulin Ratio 1.8 (1.0-2.8) Lipase 44 (23-300) U/L TSH 1.35 (0.47-4.68) uIU/mL ECG Data Interpretation: Sinus Alli Bifasicular Block HR 57 KS 182 QRS [address]-t wave change Unchanged from 11/10/22 [facility] Narrative Medical decision making narrative: Vital signs, nurse triage note, medication list, previous ER visits, and all imaging studies reviewed. Two sets of troponin are normal 2 sets of EKGs show sinus bradycardia heart rate of 57 and bifascicular block which is unchanged from 11/10/2022. Heart score 3. TSH 1.35 magnesium 2.2 sodium 140 creatinine 3.9 WBC 3.4 hemoglobin 13.9 platelets 116. Throughout the patient's stay here in the ER and prior to discharge blood pressure was 130/85 pulse of 63 respirations 14 and O2 sat of 96%. Differential diagnosis includes electrolyte derangement, uncontrolled blood pressure, atrial fibrillation, STEMI NSTEMI CHF. Will have patient follow up with PCP for outpatient follow up. Discharge Plan Departure Patient Disposition: Home Clinical Impression: Heart palpitations Instructions: DI for High Blood Pressure Activity Restrictions/Additional Instructions: Return with new or worsening symptoms. Please follow up with PCP in 1-2 weeks for follow up. Prescriptions: No Action apixaban 5 mg tablet 5 mg PO BID Qty: 180 3RF losartan 25 mg tablet 25 mg PO DAILY Qty: 30 1RF Rx Instructions: Take one tablet once daily for high blood pressure Referrals: Zachary Chandler MD [Primary Care Provider, Family Practice] Stand Alone Forms: Patient Portal/API
--- NOTE | 2024-08-31 10:27 | DI.RAD.S_ITS ---
PROCEDURE: XR CHEST 1V INDICATIONS: chest pain TECHNIQUE: One view of the chest was acquired. COMPARISON: [facility], CR, XR CHEST 1V, 01/16/2020, 14:27. FINDINGS: Surgical changes and devices: None. Lungs and pleura: Lungs are clear. No pleural effusions or pneumothorax. Mediastinum: Heart is normal size. The thoracic aortic arch appears ectatic. Bones and chest wall: No suspicious bony lesions. Overlying soft tissues appear unremarkable. IMPRESSION: No acute cardiopulmonary findings. Questionable ectasia of the thoracic aorta. If further characterization is warranted, CTA of the chest could be used. Dictated by: Becca Carlton M.D. on 08/31/2024 at 10:58 Approved by: Becca Carlton M.D. on 08/31/2024 at 10:59
--- NOTE | 2024-08-31 10:36 | EKG_ITS ---
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
[2024-08-31 10:51] LABS: Add Manual Diff / Slide Review NO; Basophils Absolute Auto 0 /uL (0-100); Basophils Percent Auto 1.1 % (0-2); Eosinophils Absolute Auto 0 /uL (0-450); Eosinophils Percent Auto 1.4 % (2-4); Hematocrit 41.4 % (41-53); Hemoglobin 13.9 g/dL (13.5-17.5); Lymphocytes Absolute Auto 1100 /uL (1100-4500); Lymphocytes Percent Auto 32.2 % (25-40); Mean Corpuscular HGB Conc 33.6 % (30-36); Mean Corpuscular Hemoglobin 29.2 PG (26-34); Monocytes Absolute Auto 300 /uL (0-900); Monocytes Percent Auto 7.5 % (3-14); Neutrophils Absolute Auto 2000 /uL (1500-7000); Neutrophils Percent Auto 57.8 % (50-75); Platelet Count 116 X10^3/uL (150-400); Red Blood Cell Count 4.76 X10^6/uL (4.5-5.9); Red Cell Distribution Width 13.9 % (11.6-14.8); White Blood Cell Count 3.4 X10^3/uL (4.5-11.0)
[2024-08-31 11:04] LABS: Magnesium 2.2 mg/dL (1.6-2.3)
[2024-08-31 11:05] LABS: Alanine Aminotransferase 28 IU/L (<50); Albumin 4.1 g/dL (3.5-5.0); Albumin Globulin Ratio 1.8 (1.0-2.8); Alkaline Phosphatase 56 U/L (38-126); Aspartate Aminotransferase 34 IU/L (17-59); BUN Creatinine Ratio 14.4 (6-22); Blood Urea Nitrogen 13 mg/dL (9-20); Calcium 8.9 mg/dL (8.4-10.2); Carbon Dioxide 25 mmol/L (22-32); Chloride 108 mmol/L (98-107); Creatine Kinase 220 U/L (55-170); Estimated Glomerular Filt Rate > 60 mL/min (>60); Globulin 2.3 g/dL (1.7-4.1); Glucose 144 mg/dL (70-99); HEMOLYSIS < 15 (0-50); Lipase 44 U/L (23-300); Potassium 3.9 mmol/L (3.4-5.1); Sodium 140 mmol/L (137-145); Total Protein 6.4 g/dL (6.3-8.2)
[2024-08-31 11:16] LABS: Troponin I < 0.012 ng/mL (0.01-0.034)
[2024-08-31 11:44] LABS: Thyroid Stimulating Hormone 1.35 uIU/mL (0.47-4.68)
--- NOTE | 2024-08-31 11:52 | PC.NURSE ---
Pt sitting on stretcher, NAD, RA, A&Ox4, breathing even/equal/unlabored at this time. Pt denies CP/SOB at this time. Call light within reach, no needs at this time. Updated pt to plan of care, pt verbalized understanding
--- NOTE | 2024-08-31 12:30 | EKG_ITS ---
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
[2024-08-31 13:12] LABS: Troponin I < 0.012 ng/mL (0.01-0.034)
== END 2024-08-31 13:32 | disposition home or self-care (01) ==
PROVIDERS: Emergency Provider Family Medicine; PCP Family Medicine
DX: R00.2 Palpitations (principal); R00.1 Bradycardia, unspecified; I45.2 Bifascicular block
CPT/HCPCS: 36415; 71045; 80053; 82550; 83690; 83735; 84443; 84484; 85025; 93005; 93010; 99283; 99284

== ENCOUNTER → 2024-09-10 13:43 | Outpatient (CLI) | payer OTHER, SELFPAY | PROVIDERS: PCP Family Medicine; Referring Provider Physician Assistant; Visit Provider Physician Assistant | DX: I48.91 Unspecified atrial fibrillation (principal); I48.92 Unspecified atrial flutter; R00.2 Palpitations; I82.409 Acute embolism and thrombosis of unspecified deep veins of unspecified lower extremity | CPT/HCPCS: 93246 ==